=== PATIENT | male | born 1985 | race Caucasian/White ===

== ENCOUNTER 2018-12-09 09:18 | Emergency (ER) | payer MEDICAID ==
[~2018-12-09] VITALS: Ht 188 cm; Wt 96.0 kg
[2018-12-09 09:22] VITALS: BP 130/79
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
--- NOTE | 2018-12-09 09:56 | NUR ---
XRAY AT BEDSIDE.
[2018-12-09] MEDS ORDERED: IBUPROFEN 200 MG TABLET ONE (09:58)
[2018-12-09] MEDS ORDERED: IBUPROFEN 200 MG TABLET PO ONE (10:00)
[2018-12-09] MEDS ORDERED: IBUPROFEN 600 MG TABLET PO ONE (10:00)
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
--- NOTE | 2018-12-09 11:17 | NUR ---
Patient/Caregiver given discharge instructions and they have confirmed that they understand the instructions. Patient ambulatory with steady gait.
== END 2018-12-09 11:19 | disposition home or self-care (01) ==
LOC: ED 10:32
DX: S93.432A Sprain of tibiofibular ligament of left ankle, initial encounter (principal); X50.1XXA Overexertion from prolonged static or awkward postures, initial encounter; Y93.89 Activity, other specified; Y92.89 Other specified places as the place of occurrence of the external cause; Y99.8 Other external cause status
CPT/HCPCS: 99283